=== PATIENT | male | born 1990 | race Caucasian/White ===

== ENCOUNTER 2023-12-19 13:13 | Emergency (ER) | payer SELFPAY ==
[2023-12-19] MEDS ORDERED: levETIRAcetam 500 MG TAB ONE (14:02)
[2023-12-19 15:09] LABS: SARS-CoV-2 NAA Rapid Test Not Detected (NotDetected)
== END 2023-12-19 15:45 | disposition home or self-care (01) ==
LOC: NAV ERS 13:13
DX: R56.9 Unspecified convulsions (principal); B34.9 Viral infection, unspecified
CPT/HCPCS: 99284